=== PATIENT | female | born 1985 | race Hispanic/Latino ===

== ENCOUNTER 2019-02-18 06:27 | Emergency (ER) | payer SELFPAY ==
[~2019-02-18] VITALS: Ht 162.6 cm; Wt 69.0 kg
[2019-02-18] MEDS ORDERED: ZOLOFT25 MG PO (06:56)
[2019-02-18] MEDS ORDERED: NAPROSYN500 MG PO (06:57)
[2019-02-18] MEDS ORDERED: VALACYCLOVIR1000 MG PO (06:57)
[2019-02-18] MEDS ORDERED: NUVARING VAGIN1 EACH (06:57)
[2019-02-18] MEDS ORDERED: ROBAXIN-750750 MG (06:58)
[2019-02-18] MEDS ORDERED: NORCO 5-325 TA1 EACH PO (09:33)
[2019-02-18] MEDS ORDERED: ONDANSETRON ODT8 MG PO (09:33)
[2019-02-18] MEDS ORDERED: CIPRO500 MG PO (09:33)
== END 2019-02-18 09:39 | disposition home or self-care (01) ==
LOC: ED 06:27
DX: N39.0 Urinary tract infection, site not specified (principal); F17.200 Nicotine dependence, unspecified, uncomplicated; Z88.8 Allergy status to other drugs, medicaments and biological substances; Z79.899 Other long term (current) drug therapy
CPT/HCPCS: 80053; 81001; 84703; 85025; 87077; 87088; 87186; 96374; 96375; 99284-25; J1170; J1885; J1956; J2405